=== PATIENT | male | born 1980 | race Caucasian/White ===

== ENCOUNTER 2024-03-10 22:49 | Emergency (ER) | payer OTHER ==
[~2024-03-10] VITALS: Ht 188 cm; Wt 120.0 kg
[~2024-03-10 22:49] MED LIST: CALCIUM ASCORB500 MG PO; ESSENTIAL DAIL1 EACH PO; LISINOPRIL10 MG PO
--- OUTSIDE RECORDS SUMMARY | 2024-03-10 22:55 | XMS ---
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 01/23/2023 11:01 - Patient eloped with IV in place. - Patient eloped before treatment completed. - Patient with suicidal and/or homicidal ideations eloped. Details: Patient LWBS CRITERIA MET - Group Notification CARE PROVIDERS -, [facility] Dentist: Underwriting Internship [facility] PHONE: [phone] -[place]- Dentist: Underwriting Internship [facility] PHONE: [phone] [facility] PRIMARY Clinic/Center: Primary Care [facility] PHONE: [phone] Tray has no Care Guidelines for this patient. Margo VISIT COUNT (12 MO.) 1 LV [facility] TOTAL 1 NOTE: Visits indicate total known visits. ED/UCC VISIT TRACKING (12 MO.) 03/10/2024 22:49 [facility] [place] TYPE: Emergency COMPLAINT: - INJURED ANKLE INPATIENT VISIT TRACKING (12 MO.) No inpatient visits to display in this time frame [email or web address]
[2024-03-10] MEDS ORDERED: BUPROPION HCL200 MG PO (23:00)
[2024-03-10] MEDS ORDERED: ALPRAZOLAM1 MG PO (23:00)
[2024-03-10] MEDS ORDERED: DULOXETINE HCL30 MG PO (23:01)
[2024-03-10] MEDS ORDERED: ROSUVASTATIN CA40 MG PO (23:01)
[2024-03-10] MEDS ORDERED: GABAPENTIN300 MG PO (23:02)
[2024-03-11] MEDS ORDERED: HYDROCODON-ACE1 EA10 PO (00:22)
[2024-03-11] MEDS ORDERED: HYDROCODONE BIT/ACETAMINOPHEN 5/325 MG 1 TAB HOME.PACK PO ONE (00:30)
[2024-03-11 00:45] VITALS: BP 158/95
== END 2024-03-11 00:45 | disposition home or self-care (01) ==
LOC: ED 22:49
DX: S82.832A Other fracture of upper and lower end of left fibula, initial encounter for closed fracture (principal); X50.1XXA Overexertion from prolonged static or awkward postures, initial encounter; I10 Essential (primary) hypertension; Z88.5 Allergy status to narcotic agent; Z79.899 Other long term (current) drug therapy
CPT/HCPCS: 73610; 99283; A9270

== ENCOUNTER 2024-03-21 09:04 | Day surgery (SDC) | payer OTHER ==
[~2024-03-21] VITALS: Ht 188 cm; Wt 113.6 kg
[~2024-03-21 09:04] MED LIST changes: +ALPRAZOLAM1 MG PO; +BUPROPION HCL200 MG PO; +BUSPIRONE HCL30 MG PO; +CEFAZOLIN SODIUM 2 GM/20 ML SYR IV SCH; +CLONIDINE HCL0.2 MG PO; +DEXAMETHASONE SOD PHOS 4 MG/ML VIAL ONE; +DULOXETINE HCL30 MG PO; +GABAPENTIN300 MG PO; +HYDROCODON-ACE1 EA10 PO; +IBLOOD GLUCOSE TEST STRIP 1 EA TEST VI PRN; +LACTATED RINGER'S 1,000 ML IV SCH; +LIDOCAINE HCL 1% 5 ML SDV INJ ONE; +LIDOCAINE HCL 2% 5 ML SDV ONE; +LYRICA150 MG PO; +MIDAZOLAM HCL 2 MG/2 ML VIAL ONE; +NARCAN4 MG NS; +ROSUVASTATIN CA40 MG PO; +Ropivacaine HCl 0.5% 30 ML VIAL ONE; +SODIUM CHLORIDE 0.9% 40 ML IV ONE; +ZETIA10 MG PO; +dexmedeTOMIDine HCl 200 MCG/2 ML VIAL ONE; +propofoL 200 MG/20 ML VIAL ONE
[2024-03-21 09:25] VITALS: BP 150/81
[2024-03-21] MEDS ORDERED: fentaNYL citrate 100 MCG/2 ML VIAL ONE (09:33)
[2024-03-21] MEDS ORDERED: LIDOCAINE HCL 2% 5 ML SDV ONE (09:34)
[2024-03-21] MEDS ORDERED: ACETAMINOPHEN 1,000 MG/100 ML VIAL ONE (09:34)
[2024-03-21] MEDS ORDERED: DEXAMETHASONE SOD PHOS 4 MG/ML VIAL ONE (09:34)
[2024-03-21] MEDS ORDERED: ondansetron HCL 4 MG/2 ML VIAL ONE (09:34)
[2024-03-21] MEDS ORDERED: propofoL 200 MG/20 ML VIAL ONE (09:34)
[2024-03-21] MEDS ORDERED: LO-DOSE ASPIRIN81 MG PO (09:37)
[2024-03-21] MEDS ORDERED: ALEVE220 M1 PO (09:38)
[2024-03-21] MEDS ORDERED: ePHEDrine sulfate 50 MG/ML AMP ONE (10:26)
[2024-03-21] MEDS ORDERED: SEVOFLURANE 250 ML BTL INH ONE (10:36)
[2024-03-21] MEDS ORDERED: HYDROCODON-ACE1 EA11 PO (10:57)
[2024-03-21] MEDS ORDERED: DICLOFENAC SODI75 MG PO (10:57)
[2024-03-21] MEDS ORDERED: HYDROCODONE/ACETA 7.5/325 TAB PO PRN (11:00)
--- NOTE | 2024-03-21 11:18 | NUR ---
03/21/24 1118 Beth Merino 1101 PT TO PACU AWAKE OFF AND ON. DENIES PAIN AND NAUSEA. ICE TO LT ANKLE.
[2024-03-21 11:43] VITALS: BP 148/91
--- NOTE | 2024-03-21 11:57 | NUR ---
1140-PT BACK TO ROOM FROM PACU ON 6L VIA MASK. RECEIVED REPORT FROM JAE NGUYEN. PT MOVES SELF UP IN BED. DENIES PAIN. IV IN RIGHT FOREARM WNL. ICE PACK PLACED ON LEFT ANKLE. PT REMOVES O2 WHEN TALKING. PT TAKING SIPS OF WATER. NO OTHER NEEDS AT THIS TIME. CALL LIGHT WITHIN REACH.
[2024-03-21 12:46] VITALS: BP 144/68
--- NOTE | 2024-03-21 12:49 | NUR ---
Hourly rounding on patient. he states that he feels well. no nausea/vomiting or pain. patient sleeps intermittently. patient has sleep apnea but does not wear a cpap at home. His oxygen saturation drops to the 70's-80's while sleeping. 6L oxygen applied for when patient sleeps. he denies any needs. He understands that he is to meet with physical therapy before he leaves. bed in lowest position, call light within reach.
[2024-03-21 13:54] VITALS: BP 155/92
--- NOTE | 2024-03-21 14:10 | NUR ---
HOURLY ROUNDING ON PATIENT. PATIENT STILL STATES THAT HE FEELS WELL. NO NAUSEA/VOMITING AND PAIN IS MINIMAL RATING IT A 2/10. HE HAS VOIDED. PHYSICIAL THERAPY HAS BEEN NOTIFIED THAT PATIENT IS READY FOR EVALUATION. PATIENT'S FRIEND IS AT BEDSIDE. HE DENIES ANY NEEDS OTHER THAN WANTING TO GO HOME. BED IN LOWEST POSITION, CALL LIGHT WITHIN REACH.
--- NOTE | 2024-03-21 15:16 | NUR ---
Patient returns to his room from physical therapy assessment. Mayra, PT, states that she does not feel safe to send patient home. She states that she had to moderately assist patient up the stairs. She also states that he has narrow doorways and he has to turn and shuffle to get through some doorways and she is uncomfortable with this. I called Dr. Merino to inform him of physical therapy's assessment of patient not passing physical therapy. Dr. Merino states to still discharge the patient.
[2024-03-21 15:28] VITALS: BP 159/95
--- NOTE | 2024-03-21 15:50 | NUR ---
Patient has met discharge criteria, including absence of nausea/vomiting and minimal pain. Patient failed his physical therapy assessment but after speaking with Dr. Merino, he still made the decision to send patient home. discharge instructions were reviewed in detail with patient and I answered all questions. I heavily encouraged patient to get established with a PCP to assess his sleep apnea and he expressed understanding of this. Patient was then discharged from the unit via wheelchair where his friend Leydi is to take him home.
[2024-03-21] MEDS ORDERED: DICLOFENAC SOD 75 MG TABEC PO SCH (21:00)
--- NOTE | 2024-03-28 07:00 | OR ---
[facility] [address] [place], [place] [address] Signed DATE OF OPERATION: 03/21/2024 SURGEON: rBittanie Merino MD PREOPERATIVE DIAGNOSIS: Left Toure B ankle fracture. POSTOPERATIVE DIAGNOSIS: Left Toure B ankle fracture. PROCEDURE PERFORMED: Open reduction and internal fixation of left ankle. ASSISTANTS: 1. Zoila Murphy PA-C. Zoila was present and critical for all portions of procedure. 2. . ANESTHESIA: General. BLOOD LOSS: Less than 50 mL. TOURNIQUET TIME: Zero. IMPLANTS: 3.8 x 130 FibuLock with three locking screws. BRIEF HISTORY: Ramone is a 43-year-old gentleman, who injured his ankle causing a fracture that displaced laterally. Risks and benefits of operative treatment were discussed with him and he elected to proceed. PROCEDURE IN DETAIL: Once consent was obtained, he was taken to the operating room. After adequate anesthesia, he was placed on the operating table with a hip bump. His hip, knee and ankle were all extremely stiff. There was [id number] swelling. The leg was prepped and draped in a standard sterile fashion. The lateral malleolus was closed, Electronically Signed By: BRITTANIE MERINO MD 03/28/24 0700 PATIENT NAME: RAMONE HANCOCK OPERATIVE REPORT DATE OF : 82 REPORT #: [id number] PHYSICIAN: BRITTANIE MERINO MD PCP: [place] CASTRO MD REPORT IS CONFIDENTIAL AND NOT TO BE RELEASED WITHOUT AUTHORIZATION [facility] [address] [place], [place] [address] Signed reduced and a percutaneous tenaculum was placed across the malleoli to hold it in position. Once this was accomplished, the fibula was marked out under image intensifier guidance and a 1.5 cm incision was made distal to the fibular tip. Blunt dissection was taken down to the fibular tip and a guide pin was advanced from the fibular tip across the fracture engaging the body of the fibula. The guide anabella was then over-reamed using the large tapered reamer. This was then removed and replaced with the long guide anabella. This was checked using image intensifier and found to be well replaced. The 3.2 followed by the 4.0 reamers were passed proximal to the fracture. Due to his size and stiffness, I elected to place the big anabella. We then removed it and obtained the anabella. This was placed from the tip of the fibula across the fracture engaging the body of the fibula proximally. The end of the anabella was advanced until it was well seated inside the fibula. The proximal fins were then deployed and three separate lag screws were placed distally. Final radiographs showed good reduction and placement of the anabella. Screw lengths were appropriate. The insertion handle was removed. All wounds were irrigated and closed with minal. It was then dressed with Allevyn dressing. There was a small abrasion medially. It was treated with Medihoney and Allevyn dressing. He was placed back into his fracture boot, taken to the recovery room in satisfactory condition. All sponge, needle, and instrument counts were correct. Brittanie Merino MD BA/MODL /[id number] Copies: ~ Electronically Signed By: BRITTANIE MERINO MD 03/28/24 0700 PATIENT NAME: RAMONE HANCOCK OPERATIVE REPORT DATE OF : 82 REPORT #: [id number] PHYSICIAN: BRITTANIE MERINO MD PCP: [place] CASTRO MD REPORT IS CONFIDENTIAL AND NOT TO BE RELEASED WITHOUT AUTHORIZATION
== END 2024-03-21 15:43 | disposition home or self-care (01) ==
LOC: DS 09:04
PROVIDERS: ATTEND Specialist
PROC: 0QSK04Z Reposition Left Fibula with Internal Fixation Device, Open Approach (ICD-10-PCS; principal; 2024-03-21 11:15)
DX: S82.62XA Displaced fracture of lateral malleolus of left fibula, initial encounter for closed fracture (principal); X58.XXXA Exposure to other specified factors, initial encounter
CPT/HCPCS: 01480; 64447; 73600; 97162; 97530; A9270; C1713; C1769; J0131; J0690; J1100; J2003; J2250; J2405; J2704; J2795; J3010; J7121

== ENCOUNTER 2024-07-16 19:45 | Emergency (ER) | payer OTHER ==
[~2024-07-16] VITALS: Ht 188 cm; Wt 114.0 kg
[~2024-07-16 19:45] MED LIST changes: +ALEVE220 M1 PO; -CEFAZOLIN SODIUM 2 GM/20 ML SYR IV SCH; -DEXAMETHASONE SOD PHOS 4 MG/ML VIAL ONE; +DICLOFENAC SODI75 MG PO; +HYDROCODON-ACE1 EA11 PO; -IBLOOD GLUCOSE TEST STRIP 1 EA TEST VI PRN; -LACTATED RINGER'S 1,000 ML IV SCH; -LIDOCAINE HCL 1% 5 ML SDV INJ ONE; -LIDOCAINE HCL 2% 5 ML SDV ONE; +LO-DOSE ASPIRIN81 MG PO; -MIDAZOLAM HCL 2 MG/2 ML VIAL ONE; -Ropivacaine HCl 0.5% 30 ML VIAL ONE; -SODIUM CHLORIDE 0.9% 40 ML IV ONE; -dexmedeTOMIDine HCl 200 MCG/2 ML VIAL ONE; -propofoL 200 MG/20 ML VIAL ONE
--- OUTSIDE RECORDS SUMMARY | 2024-07-16 19:50 | XMS ---
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 - Patient eloped before treatment completed. - Patient with suicidal and/or homicidal ideations eloped. Details: Patient LWBS CRITERIA MET - Group Notification CARE PROVIDERS -[facility] Dentist: Furniture Designer [facility] PHONE: [phone] -[place]- Dentist: Furniture Designer [facility] PHONE: [phone] R[facility] PRIMARY Clinic/Center: Primary Care [facility] PHONE: [phone] Tray has no Care Guidelines for this patient. Margo VISIT COUNT (12 MO.) 2 LV Tucker TOTAL 2 NOTE: Visits indicate total known visits. ED/UCC VISIT TRACKING (12 MO.) 07/16/2024 19:46 [facility] [place] TYPE: Emergency COMPLAINT: - BLOOD PRESSURE PROBLEM 03/10/2024 22:[address] [facility] [place] TYPE: Emergency COMPLAINT: - INJURED ANKLE DIAGNOSES: - Allergy status to narcotic agent - Essential (primary) hypertension - Other fracture of upper and lower end of left fibula, initial encounter for closed fracture - Other snf (current) drug therapy - Overexertion from prolonged static or awkward postures, initial encounter - Pain in left ankle and joints of left foot INPATIENT VISIT TRACKING (12 MO.) No inpatient visits to display in this time frame [email or web address]
[2024-07-16] MEDS ORDERED: LACTATED RINGER'S 1,000 ML IV ONE ×3 (20:00→22:15)
[2024-07-16 20:01] LABS: HEMOGLOBIN 10.8 g/dL (12.0-18.0); MCH 21.8 (27-36)
[2024-07-16 20:04] LABS: HEMATOCRIT 34.6 % (35.0-50.0); MCHC 31.1 g/dl (30-36); MCV 70.1 fl (81-99); PLATELET COUNT 492 K/uL (140-440); RBC 4.94 M/ul (4.3-5.7); RDW 18.4 (10.5-15.0)
[2024-07-16 20:22] LABS: ALBUMIN 3.1 g/dL (3.4-5.0); ALBUMIN/GLOBULIN RATIO 0.67 (1.1-2.4); ANION GAP 16.3 (7-21); BILIRUBIN, TOTAL 0.5 mg/dL (0.2-1.0); BUN/CREATININE RATIO 9.33 (6.0-28.6); CALCIUM 9.2 mg/dL (8.5-10.1); POTASSIUM 4.3 mmol/L (3.5-5.1); PROTEIN, TOTAL 7.7 g/dL (6.4-8.2)
[2024-07-16 20:29] LABS: BASOPHILS, MANUAL DIFF 1; LYMPHOCYTES, MANUAL DIFF 9; MONOCYTES, MANUAL DIFF 8; NEUTROPHILS, MANUAL DIFF 82
[2024-07-16] MEDS ORDERED: LACTATED RINGER'S 1,000 ML IV SCH (20:45)
[2024-07-16 22:04] LABS: AMPHETAMINES, URINE NEGATIVE (NEGATIVE); BARBITURATES, URINE NEGATIVE (NEGATIVE); BENZODIAZEPINE, URINE NEGATIVE (NEGATIVE); BUPRENORPHINE, URINE NEGATIVE (NEGATIVE); CANNABINOID, URINE NEGATIVE (NEGATIVE); COCAINE, URINE POSITIVE (NEGATIVE); ECSTASY, URINE NEGATIVE (NEGATIVE); FENTANYL, URINE NEGATIVE (NEGATIVE); METHADONE, URINE NEGATIVE (NEGATIVE); OPIATES, URINE NEGATIVE (NEGATIVE); OXYCODONE, URINE NEGATIVE (NEGATIVE); PHENCYCLIDINE, URINE NEGATIVE (NEGATIVE)
[2024-07-16 22:40] LABS: ANION GAP 13.3 (7-21); BUN/CREATININE RATIO 9.42 (6.0-28.6); CALCIUM 8.6 mg/dL (8.5-10.1); CREATININE, SERUM 5.94 mg/dL (0.70-1.30); POTASSIUM 4.3 mmol/L (3.5-5.1)
[2024-07-17 01:27] LABS: ANION GAP 16.1 (7-21); BUN/CREATININE RATIO 9.25 (6.0-28.6); CALCIUM 8.6 mg/dL (8.5-10.1); CREATININE, SERUM 6.16 mg/dL (0.70-1.30); POTASSIUM 4.1 mmol/L (3.5-5.1)
[2024-07-17 07:50] VITALS: BP 155/79
--- NOTE | 2024-07-17 11:35 | EKG ---
[facility] [address] [place] [address] Signed Normal sinus rhythm Nonspecific T wave abnormality Abnormal ECG When compared with ECG of 17-MAR-2024 12:22, Nonspecific T wave abnormality is now evident Confirmed by Charlie Julien MD ([id number]) on 07/17/2024 11:35:11 AM Electronically Signed By: CHARLIE JULIEN MD 07/17/24 1135 PATIENT NAME: VIOLETOSMANRAMONE Electrocardiogram DATE OF : 82 PHYSICIAN: CHARLIE JULIEN MD REPORT #: [id number] REPORT IS CONFIDENTIAL AND NOT TO BE RELEASED WITHOUT AUTHORIZATION
== END 2024-07-17 07:50 | disposition short-term general hospital (02) ==
LOC: ED 19:45
PROVIDERS: Family Medicine
DX: N17.9 Acute kidney failure, unspecified (principal); I10 Essential (primary) hypertension; Z88.5 Allergy status to narcotic agent; Z79.82 Long term (current) use of aspirin; Z79.899 Other long term (current) drug therapy
CPT/HCPCS: 36415; 51798; 71045; 74176; 80048; 80053; 80307; 82550; 83735; 83880; 84484; 85025; 93005; 93010; 96360; 96361; 99285-25; J7121